=== PATIENT | female | born 1975 ===

== ENCOUNTER 2017-07-08 16:13 | Emergency (ER) | payer MEDICAID ==
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
[2017-07-08 19:19] VITALS: BP 110/71; PULSE 76; RESP 19; TEMP 98.3; O2SAT 98
== END 2017-07-08 19:27 | disposition home or self-care (01) ==
LOC: H.ER 16:13
DX: M54.9 Dorsalgia, unspecified (principal)
CPT/HCPCS: 81025; 96374; 96375; 99283; J1885; J2270; J2405

== ENCOUNTER 2018-03-02 20:08 | Emergency (ER) | payer MEDICAID, OTHER ==
[2018-03-02 20:09] VITALS: BMI 24.7
[2018-03-02] MEDS ORDERED: Albuterol-Ipratrop 3 mg / 0.5 (3 ml) UD IH STA (21:49)
--- NOTE | 2018-03-02 21:52 | ED PDOC ---
HPI: SOB/CHF/COPD Time Seen by Provider: 03/02/18 21:27 Chief Complaint (Nursing): Shortness Of Breath Chief Complaint (Provider): shortness of breath History Per: Patient History/Exam Limitations: no limitations Onset/Duration Of Symptoms: Days (2 weeks) Current Symptoms Are (Timing): Still Present Associated Symptoms: Chest Pain, Productive Cough Additional Complaint(s): 42 y/o female history of asthma presents with shortness of breath x 2 weeks. Associated chest tightness, and productive cough of yellow sputum. Patient evaluated by her primary doctor and started on ventolin inhaler and cough syrup 3 days ago with little improvement. Denies fever, nasal congestion/discharge, chest pain, palpitations, abdominal pain, leg pain/swelling, recent travel, sick contacts. Past Medical History Reviewed: Historical Data, Nursing Documentation, Vital Signs Vital Signs: Last Vital Signs Temp 98.6 F 03/02/18 20:16 Pulse 84 03/02/18 20:16 Resp 16 03/02/18 20:16 BP 125/82 03/02/18 20:16 Pulse Ox 100 03/02/18 21:52 - Medical History PMH: Asthma, Back Problems - Surgical History Surgical History: No Surg Hx - Family History Family History: States: Unknown Family Hx - Immunization History Hx Tetanus Toxoid Vaccination: No Hx Influenza Vaccination: Yes Hx Pneumococcal Vaccination: No - Home Medications Home Medications: Ambulatory Orders Medication Instructions Recorded Cyclobenzaprine [Cyclobenzaprine 10 mg PO TID PRN #15 tab 11/06/17 HCl] Lidocaine 5% [Lidoderm] 1 patch TOP DAILY PRN #30 patch 11/06/17 Naproxen [Naprosyn] 1 tab PO BID PRN #30 tab 11/06/17 predniSONE [predniSONE Tab] 2 tab PO DAILY #8 tab 11/06/17 Promethazine HCl/Codeine 5 ml PO TID PRN #60 ml 03/03/18 [Prometh-Codein 6.25-10 mg/5 ml] predniSONE [Prednisone] 60 mg PO DAILY #12 tab 03/03/18 - Allergies Allergies/Adverse Reactions: Allergies Allergy/AdvReac Type Severity Reaction Status Date / Time dust Allergy CONGESTION Uncoded 11/06/17 17:41 Review of Systems ROS Statement: Except As Marked, All Systems Reviewed And Found Negative Respiratory: Positive for: Cough, Shortness of Breath, Sputum Physical Exam - Reviewed Nursing Documentation Reviewed: Yes Vital Signs Reviewed: Yes - Physical Exam Appears: Positive for: Well, Non-toxic, No Acute Distress Head Exam: Positive for: ATRAUMATIC, NORMAL INSPECTION, NORMOCEPHALIC Skin: Positive for: Normal Color Eye Exam: Positive for: Normal appearance ENT: Positive for: Normal ENT Inspection Cardiovascular/Chest: Positive for: Regular Rate, Rhythm Respiratory: Positive for: Decreased Breath Sounds. Negative for: Rales, Rhonchi, Wheezing Gastrointestinal/Abdominal: Positive for: Normal Exam Back: Positive for: Normal Inspection Extremity: Positive for: Normal ROM Neurologic/Psych: Positive for: Alert, Oriented - Laboratory Results Result Diagrams: 03/02/18 23:30 03/02/18 23:30 - ECG ECG: Positive for: Viewed By Me ECG Rhythm: Positive for: Sinus Rhythm O2 Sat by Pulse Oximetry: 100 - Radiology X-Ray: Viewed By Me X-Ray Interpretation: No Acute Disease - Progress ED Course And Treament: labs, ekg, chest xray, IV solumedrol, duonebs On re-eval, patient states she is feeling much better. Patient educated on findings, discharged with rx Prednisone, Promethazine with codeine. Advised to continue Ventolin inhaler Follow up PMD 2-3 days. Return precautions given Disposition - Clinical Impression Clinical Impression: Bronchitis - Patient ED Disposition Is Patient to be Admitted: No Counseled Patient/Family Regarding: Studies Performed, Diagnosis, Need For Followup, Rx Given - Disposition Disposition: Routine/Home Disposition Time: 00:45 Condition: IMPROVED Prescriptions: predniSONE [Prednisone] 60 mg PO DAILY #12 tab Promethazine HCl/Codeine [Prometh-Codein 6.25-10 mg/5 ml] 5 ml PO TID PRN #60 ml PRN Reason: Cough Instructions: Acute Bronchitis Forms: [employer] (Libyan)
[2018-03-02] MEDS ORDERED: Albuterol-Ipratrop 3 mg / 0.5 (3 ml) UD ONE (23:10)
[2018-03-02 23:39] LABS: BASO % 0.2 % (0.0-2.0); EOS % 0.4 % (0.0-4.0); HEMOGLOBIN 13.2 g/dL (12.0-16.0); LYMPH # 2.1 K/uL (1.0-4.3); LYMPH % 22.6 % (20.0-40.0); MEAN CELL VOLUME 91.3 fl (81.0-99.0); MEAN PLATELET VOLUME 7.8 fl (7.2-11.7); MONO # 0.8 K/uL (0.0-0.8); MONO % 8.5 % (0.0-10.0); NEUT # 6.3 K/uL (1.8-7.0); NEUT % 68.3 % (50.0-75.0); NRBC % 0.2 % (0.0-0.0); RBC 4.26 Mil/uL (3.80-5.20); RED CELL DISTRIBUTION WIDTH 13.7 % (11.5-14.5); WHITE BLOOD COUNT 9.2 K/uL (4.8-10.8)
[2018-03-02 23:47] LABS: ALBUMIN 3.8 g/dL (3.5-5.0); ALT/SGPT 45 U/L (9-52); AST/SGOT 39 U/L (14-36); BLOOD UREA NITROGEN 20 mg/dl (7-17); CALCIUM 9.1 mg/dL (8.4-10.2); GFR AFRICAN-AMERICAN > 60; GFR NON-AFRICAN AMERICAN > 60
[2018-03-03] MEDS ORDERED: Albuterol-Ipratrop 3 mg / 0.5 (3 ml) UD IH STA (00:41)
[2018-03-03] MEDS ORDERED: Albuterol-Ipratrop 3 mg / 0.5 (3 ml) UD ONE (01:02)
[2018-03-03 02:25] VITALS: BP 124/62; PULSE 78; RESP 18; TEMP 98.5; O2SAT 99
--- NOTE | 2018-03-03 09:53 | CARD ---
APPROVED REPORT EKG Measurement Heart [id number] <Conclusion> Sinus rhythm with short MN Otherwise normal ECG
--- NOTE | 2018-03-03 10:27 | RAD ---
HISTORY: cough, sob COMPARISON: No prior. TECHNIQUE: Chest PA and lateral FINDINGS: LUNGS: No active pulmonary disease. PLEURA: No significant pleural effusion identified. No pneumothorax apparent. CARDIOVASCULAR: Within normal limits OSSEOUS STRUCTURES: Diffuse thoracic spondylosis VISUALIZED UPPER ABDOMEN: Normal. OTHER FINDINGS: None. IMPRESSION: No acute cardiopulmonary pathology appreciated. Thoracic spondylosis
== END 2018-03-03 01:25 | disposition home or self-care (01) ==
LOC: H.ER 20:08
DX: J40 Bronchitis, not specified as acute or chronic (principal)
CPT/HCPCS: 71046; 80053; 81025; 84484; 85025; 93005; 96374; 99285; J2930

== ENCOUNTER 2018-12-08 13:42 | Emergency (ER) | payer MEDICAID, OTHER ==
[2018-12-08 13:42] VITALS: BMI 24.7
[2018-12-08 14:11] VITALS: BP 129/88; PULSE 72; RESP 18; TEMP 98.1; O2SAT 100
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
== END 2018-12-08 16:20 | disposition home or self-care (01) ==
LOC: H.ER 13:42
DX: M54.9 Dorsalgia, unspecified (principal)
CPT/HCPCS: 96372; 99283; J1885